=== PATIENT | female | born 1965 | race Hispanic/Latino ===

== ENCOUNTER 2021-06-14 06:22 | Day surgery (SDC) | payer OTHER ==
[2021-06-12 10:30] VITALS: BP 119/82
[2021-06-12 10:38] LABS: BASOPHILS % (AUTO) 0.8 % (0.0-5.0); EOSINOPHILS % (AUTO) 4.6 % (0.0-8.0); HEMATOCRIT 43.7 % (36-48); LYMPHOCYTES % (AUTO) 37.1 % (21.0-51.0); MEAN CORPUSCULAR HEMOGLOBIN 30.2 pg (27.0-33.0); MEAN CORPUSCULAR HGB CONC 32.3 g/dL (32.0-36.0); MEAN CORPUSCULAR VOLUME 93.6 fL (79-99); MONOCYTES % (AUTO) 7.8 % (3.0-13.0); NEUTROPHILS % (AUTO) 49.4 % (40.0-77.0); PLATELET COUNT (AUTO) 267 K/uL (130-400); RED BLOOD CELL COUNT(AUTO) 4.67 MIL/uL (4.00-5.50); RED CELL DISTRIBUTION WIDTH 12.7 % (11.0-15.5); WHITE BLOOD COUNT (AUTO) 6.3 K/uL (4.8-10.8)
[2021-06-12 10:55] LABS: CREATININE 1.5 mg/dL (0.5-1.5); POTASSIUM 4.7 mmol/L (3.5-5.1)
[~2021-06-14] VITALS: Ht 162.6 cm; Wt 85.3 kg
[2021-06-14] VITALS (15 sets, daily range): BP systolic 106–126; BP diastolic 60–86
[2021-06-14] MEDS ORDERED: LACTATED RINGERS 1000ML 1,000 ML IV ONE (07:36)
[2021-06-14] MEDS: CEFAZOLIN SODIUM 1 GM VIAL ONE ×2 (07:45→11:45)
[2021-06-14] MEDS ORDERED: NEOSTIGMINE 5MG/5ML SYR IV ONE (08:50)
[2021-06-14] MEDS ORDERED: SUCCINYLCHOLINE CHLORIDE 20 MG/ML 10 ML VIAL ONE (08:50)
[2021-06-14] MEDS ORDERED: SUCCINYLCHOLINE 200MG/10ML SYR ONE (08:50)
[2021-06-14] MEDS ORDERED: GLYCOPYRROLATE 1 MG/5 ML SYRINGE ONE (08:50)
[2021-06-14] MEDS ORDERED: PROPOFOL 10 MG/ML 20ML VIAL IV ONE (08:50)
[2021-06-14] MEDS ORDERED: LIDOCAINE PF 100MG/5ML (2%) SYRINGE 5ML ONE (08:50)
[2021-06-14] MEDS ORDERED: MIDAZOLAM HCL 1 MG/ML 2ML VIAL ONE (08:50)
[2021-06-14] MEDS ORDERED: ROCURONIUM 10MG/1ML SYR 10 MG/ML ML ONE (08:51)
[2021-06-14] MEDS ORDERED: ROPIVACAINE 0.5% 5MG/ML 30ML IJ ONE (08:57)
[2021-06-14] MEDS ORDERED: EPINEPHRINE 1 MG/ML 30ML VIAL IJ ONE (09:02)
[2021-06-14] MEDS ORDERED: PANT40TA54 PO (10:13)
[2021-06-14] MEDS ORDERED: GABA800T9 PO (10:13)
[2021-06-14] MEDS ORDERED: SERT-440 PO (10:13)
[2021-06-14] MEDS ORDERED: CALC625T31 PO (10:13)
[2021-06-14] MEDS ORDERED: FOLI0.8T41 PO (10:13)
[2021-06-14] MEDS ORDERED: BUPR200T34 PO (10:13)
[2021-06-14] MEDS ORDERED: SIMV-43 PO (10:13)
[2021-06-14] MEDS ORDERED: CHOL100046 PO (10:13)
[2021-06-14] MEDS ORDERED: CEFAZOLIN SODIUM 2 GM VIAL IV ONE (11:45)
[2021-06-14] MEDS ORDERED: EPHEDRINE SULFATE 50 MG/ML AMPULE ONE (12:45)
[2021-06-14] MEDS ORDERED: FENTANYL CITRATE PF 50 MCG/1 ML 2ML VIAL ONE ×2 (13:31→14:13)
[2021-06-14] MEDS ORDERED: CEPH500B PO (14:22)
[2021-06-14] MEDS ORDERED: IBUP-2070 PO (14:22)
[2021-06-14] MEDS ORDERED: HYDR-4060 PO (14:22)
[2021-06-14] MEDS ORDERED: ONDANSETRON 4MG INJ ONE (15:00)
== END 2021-06-14 16:00 | disposition home or self-care (01) ==
LOC: DAH 06:22
PROVIDERS: ATTEND Orthopaedic Surgery
DX: M75.121 Complete rotator cuff tear or rupture of right shoulder, not specified as traumatic (principal); Z20.822 Contact with and (suspected) exposure to COVID-19; M19.011 Primary osteoarthritis, right shoulder; M75.41 Impingement syndrome of right shoulder; I10 Essential (primary) hypertension; K21.9 Gastro-esophageal reflux disease without esophagitis; E78.5 Hyperlipidemia, unspecified; G47.33 Obstructive sleep apnea (adult) (pediatric); M06.9 Rheumatoid arthritis, unspecified; Z98.890 Other specified postprocedural states; Z98.891 History of uterine scar from previous surgery; Z72.89 Other problems related to lifestyle; Z87.891 Personal history of nicotine dependence
CPT/HCPCS: 29807; 29826; 29827; 36415; 64415; 76942; 80048; 85025; 87635; A4215; A4216; A4221; A4222; A4223 ×2; A4565; A4600; A4649 ×4; A4663; A4930; A5120; A6204; C1713 ×3; C9803; G0168; J0171; J0330 ×2; J0690 ×2; J2001; J2250; J2405; J2704; J2710; J2795; J3010 ×2; J3490 ×2; J7030; J7120 ×2

== ENCOUNTER 2022-04-03 07:30 | Observation (INO) | payer OTHER ==
[2022-04-03] VITALS (11 sets, daily range): BP systolic 109–140; BP diastolic 71–88
[~2022-04-03] VITALS: Ht 162.6 cm; Wt 84.8 kg
[~2022-04-03 07:30] MED LIST: BUPR200T34 PO; CALC625T31 PO; CEPH500B PO; CHOL100046 PO; FOLI0.8T41 PO; GABA800T9 PO; HYDR-4060 PO; IBUP-2070 PO; PANT40TA54 PO; SERT-440 PO; SIMV-43 PO
[2022-04-03 08:17] LABS: BASOPHILS % (AUTO) 0.8 % (0.0-5.0); EOSINOPHILS % (AUTO) 2.4 % (0.0-8.0); HEMATOCRIT 44.6 % (36-48); LYMPHOCYTES % (AUTO) 34.1 % (21.0-51.0); MEAN CORPUSCULAR HEMOGLOBIN 30.3 pg (27.0-33.0); MEAN CORPUSCULAR HGB CONC 33.4 g/dL (32.0-36.0); MEAN CORPUSCULAR VOLUME 90.8 fL (79-99); MONOCYTES % (AUTO) 6.7 % (3.0-13.0); NEUTROPHILS % (AUTO) 55.7 % (40.0-77.0); PLATELET COUNT (AUTO) 274 K/uL (130-400); RED BLOOD CELL COUNT(AUTO) 4.91 MIL/uL (4.00-5.50); WHITE BLOOD COUNT (AUTO) 5.9 K/uL (4.8-10.8)
[2022-04-03 08:21] LABS: CREATININE 1.4 mg/dL (0.5-1.5); POTASSIUM 4.3 mmol/L (3.5-5.1)
[2022-04-03 08:23] LABS: INR 0.94 (0.85-1.15); PROTHROMBIN TIME 10.3 SEC (9.6-11.6)
[2022-04-03 08:25] LABS: PARTIAL THROMBOPLASTIN TIME 26.3 SEC (26.3-35.5)
[2022-04-03] MEDS: ACETAMINOPHEN 325 MG TAB PO PRN ×2 (17:23→21:25)
[2022-04-04 03:25] VITALS: BP 106/73
[2022-04-04 05:19] LABS: BASOPHILS % (AUTO) 0.4 % (0.0-5.0); EOSINOPHILS % (AUTO) 2.4 % (0.0-8.0); HEMATOCRIT 38.5 % (36-48); MEAN CORPUSCULAR HEMOGLOBIN 30.7 pg (27.0-33.0); MEAN CORPUSCULAR VOLUME 90.2 fL (79-99); MONOCYTES % (AUTO) 5.8 % (3.0-13.0); NEUTROPHILS % (AUTO) 60.1 % (40.0-77.0); PLATELET COUNT (AUTO) 255 K/uL (130-400); RED BLOOD CELL COUNT(AUTO) 4.27 MIL/uL (4.00-5.50); RED CELL DISTRIBUTION WIDTH 12.7 % (11.0-15.5); WHITE BLOOD COUNT (AUTO) 7.2 K/uL (4.8-10.8)
[2022-04-04 05:27] LABS: CREATININE 1.3 mg/dL (0.5-1.5); POTASSIUM 3.9 mmol/L (3.5-5.1)
[2022-04-04 07:50] VITALS: BP 129/86
[2022-04-04 12:00] VITALS: BP 126/87
== END 2022-04-04 15:15 | disposition home or self-care (01) ==
LOC: DAHIP 07:30 → WSH 08:30 → EDSTATUS 10:00
PROVIDERS: ADMIT Internal Medicine Nephrology; ATTEND Internal Medicine Nephrology
DX: N18.30 Chronic kidney disease, stage 3 unspecified (principal); R80.9 Proteinuria, unspecified; N20.2 Calculus of kidney with calculus of ureter; E78.5 Hyperlipidemia, unspecified; F41.8 Other specified anxiety disorders; M06.9 Rheumatoid arthritis, unspecified; K21.9 Gastro-esophageal reflux disease without esophagitis; Z87.442 Personal history of urinary calculi; Z79.899 Other long term (current) drug therapy
CPT/HCPCS: 80048 ×2; 85025 ×2; 85610; 85730; 36415 ×2; 50200; 76942; G0378 ×4

== ENCOUNTER 2023-01-17 05:46 | Day surgery (SDC) | payer OTHER ==
[2023-01-15 10:37] LABS: EOSINOPHILS % (AUTO) 2.2 % (0.0-8.0); HEMATOCRIT 44.9 % (36-48); LYMPHOCYTES % (AUTO) 41.6 % (21.0-51.0); MEAN CORPUSCULAR HEMOGLOBIN 30.1 pg (27.0-33.0); MEAN CORPUSCULAR VOLUME 91.4 fL (79-99); MONOCYTES % (AUTO) 7.3 % (3.0-13.0); NEUTROPHILS % (AUTO) 47.9 % (40.0-77.0); PLATELET COUNT (AUTO) 248 K/uL (130-400); RED BLOOD CELL COUNT(AUTO) 4.91 MIL/uL (4.00-5.50); RED CELL DISTRIBUTION WIDTH 12.9 % (11.0-15.5); WHITE BLOOD COUNT (AUTO) 5.1 K/uL (4.8-10.8)
[2023-01-15 10:41] VITALS: BP 114/80
[2023-01-15 10:47] LABS: ALBUMIN 4.1 g/dL (3.5-5.0); CARBON DIOXIDE 29 mmol/L (21-32); CHLORIDE 103 mmol/L (101-111); CREATININE 1.3 mg/dL (0.5-1.5); GLOMERULAR FILTR. RATE CALC 48 mL/min (>90); GLUCOSE,RANDOM 100 mg/dL (70-105); POTASSIUM 4.5 mmol/L (3.5-5.1); SODIUM SERUM 141 mmol/L (136-145); UREA NITROGEN, BLOOD 11 mg/dL (7-18)
[2023-01-15 10:50] LABS: CRP QUANTITATIVE < 2.00 mg/L (0.00-9.0)
[2023-01-17] VITALS (18 sets, daily range): BP systolic 105–147; BP diastolic 55–90
[~2023-01-17] VITALS: Ht 162.6 cm; Wt 87.3 kg
[~2023-01-17 05:46] MED LIST changes: -BUPR200T34 PO; -CALC625T31 PO; -CEPH500B PO; +GABA-533 PO; -GABA800T9 PO; -HYDR-4060 PO; -IBUP-2070 PO; -SERT-440 PO
[2023-01-17] MEDS ORDERED: CEFAZOLIN SODIUM 2 GM VIAL ONE (06:18)
[2023-01-17] MEDS ORDERED: LACTATED RINGERS 1000ML 1,000 ML IV ONE (06:18)
[2023-01-17] MEDS ORDERED: HYDR-4060 PO (09:48)
[2023-01-17] MEDS ORDERED: ROCURONIUM 10MG/1ML SYR 10 MG/ML ML ONE (09:55)
[2023-01-17] MEDS ORDERED: PROPOFOL 10 MG/ML 20ML VIAL IV ONE (09:55)
[2023-01-17] MEDS ORDERED: LIDOCAINE PF 100MG/5ML (2%) SYRINGE 5ML ONE (09:55)
[2023-01-17] MEDS ORDERED: MIDAZOLAM HCL 1 MG/ML 2ML VIAL ONE (09:55)
[2023-01-17] MEDS ORDERED: FENTANYL CITRATE PF 50 MCG/1 ML 2ML VIAL ONE (09:56)
[2023-01-17] MEDS ORDERED: ROPIVACAINE 0.5% 5MG/ML 30ML IJ ONE (10:01)
[2023-01-17] MEDS ORDERED: LIDOCAINE HCL-MPF 2% 10ML AMP IJ ONE (10:01)
[2023-01-17] MEDS ORDERED: CEFAZOLIN SODIUM 2 GM VIAL IVPB ONE (10:34)
[2023-01-17] MEDS ORDERED: KETOROLAC 30MG VIAL (30MG/ML) ONE (11:39)
[2023-01-17] MEDS ORDERED: NEOSTIGMINE 5MG/5ML SYR IV ONE (11:39)
[2023-01-17] MEDS ORDERED: GLYCOPYRROLATE 1 MG/5 ML SYRINGE ONE (11:39)
[2023-01-17] MEDS ORDERED: MEPERIDINE-PF 25 MG/ML SYG ONE ×2 (12:10→12:21)
[2023-01-17] MEDS ORDERED: HYDROCODONE/ACETAMINOPHEN 5/325 MG TAB ONE (13:39)
[2023-01-17] MEDS ORDERED: ONDANSETRON 4MG INJ ONE (14:14)
== END 2023-01-17 11:30 | disposition home or self-care (01) ==
LOC: DAH 05:46
PROVIDERS: ATTEND Student in an Organized Health Care Education/Training Program
DX: M67.854 Other specified disorders of tendon, left hip (principal); Z20.822 Contact with and (suspected) exposure to COVID-19; M16.0 Bilateral primary osteoarthritis of hip; K21.9 Gastro-esophageal reflux disease without esophagitis; G47.33 Obstructive sleep apnea (adult) (pediatric); G43.909 Migraine, unspecified, not intractable, without status migrainosus; I12.9 Hypertensive chronic kidney disease with stage 1 through stage 4 chronic kidney disease, or unspecified chronic kidney disease; N18.4 Chronic kidney disease, stage 4 (severe); E78.5 Hyperlipidemia, unspecified; M06.9 Rheumatoid arthritis, unspecified; Z98.890 Other specified postprocedural states; Z98.891 History of uterine scar from previous surgery; Z90.710 Acquired absence of both cervix and uterus; Z87.891 Personal history of nicotine dependence; Z88.8 Allergy status to other drugs, medicaments and biological substances
CPT/HCPCS: 82040; 80048; 85025; 84134; 86140; 87426; 36415; 64999; 27299; 97161; 97116; A4663; J7120; J3010; J3490 ×2; J2710; J2001; J2250; J2704; J2405; J1885; J2175 ×2; J2795; J0690 ×2; G0168; A6255; A4215; A4223; A4222; A4221; J7030